=== PATIENT | female | born 1975 | race Caucasian/White ===

== ENCOUNTER → 2024-02-19 07:51 | Outpatient (REF) | payer BC, SELFPAY | LOC: WDC 07:51 | PROVIDERS: ATTENDING PHYSICIAN Nurse Practitioner Adult Health; FAMILY PHYSICIAN Internal Medicine | DX: Z12.31 Encounter for screening mammogram for malignant neoplasm of breast (principal) | CPT/HCPCS: 77063; 77067 ==

== ENCOUNTER → 2024-07-15 09:08 | Outpatient (REF) | payer BC, SELFPAY | LOC: WDC 09:08 | PROVIDERS: ATTENDING PHYSICIAN Internal Medicine | DX: N63.10 Unspecified lump in the right breast, unspecified quadrant (principal); N63.11 Unspecified lump in the right breast, upper outer quadrant | CPT/HCPCS: 76642; 77061; 77065 ==

== ENCOUNTER → 2024-07-29 10:26 | Outpatient (REF) | payer BC, SELFPAY ==
--- NOTE | 2024-07-29 13:42 | OID.BR.INTR ---
[facility] Breast Navigator - Initial
- -
Date of Contact: 07/29/24
Met with patient. Patient given written information on navigator services available at [facility]. Will follow up as needed per protocol.
== END ==
LOC: WDC 10:26
PROVIDERS: ATTENDING PHYSICIAN Internal Medicine
DX: N63.11 Unspecified lump in the right breast, upper outer quadrant (principal)
CPT/HCPCS: 88305; 19083; 88341; 88342; 88360; A4648

== ENCOUNTER → 2024-08-17 10:58 | Outpatient (REF) | payer BC, SELFPAY | LOC: WDC 10:58 | PROVIDERS: ATTENDING PHYSICIAN Surgery; FAMILY PHYSICIAN Internal Medicine | DX: R92.30 Dense breasts, unspecified (principal); Z17.0 Estrogen receptor positive status [ER+]; C50.411 Malignant neoplasm of upper-outer quadrant of right female breast | CPT/HCPCS: 76641 ==

== ENCOUNTER → 2024-08-26 09:52 | Outpatient (REF) | payer BC, SELFPAY | LOC: WDC 09:52 | PROVIDERS: ATTENDING PHYSICIAN Surgery | DX: C50.411 Malignant neoplasm of upper-outer quadrant of right female breast (principal) | CPT/HCPCS: 38792; 76942; A9541 ==

== ENCOUNTER 2024-08-27 06:32 | Day surgery (SDC) | payer BC, SELFPAY ==
[2024-08-20 07:31] VITALS: BMI 19.2
[2024-08-20 08:10] LABS: Hemoglobin 15.5 g/dL (12.0-16.0); Mean Corp Hgb Conc. 35.2 g/dL (33.0-37.0); Mean Corpuscular Hgb 31.3 pg (27.0-31.0); Mean Corpuscular Volume 88.9 fL (81.0-99.0); Mean Platelet Volume 9.2 fL (7.4-10.4); Platelet Count 252 10^3/uL (130-400); Red Blood Cell Count 4.95 10^6/uL (4.20-5.40); Red Cell Dist. Width 11.9 % (11.5-14.5); White Blood Cell Count 5.9 10^3/uL (4.8-10.8)
[2024-08-20 08:17] LABS: ALT (SGPT) 23 U/L (0-35); AST (SGOT) 29 U/L (14-36); Albumin 4.5 g/dl (3.5-5.0); Alkaline Phosphatase 42 U/L (38-126); Blood Urea Nitrogen 18 mg/dl (7-17); Calcium 9.8 mg/dl (8.4-10.2); Carbon Dioxide 26 mmol/L (22-30); Chloride 103 mmol/L (98-107); Estimated Creatinine Clearance 67 ml/min; Glucose 94 mg/dl (70-99); Potassium 4.1 mmol/L (3.5-5.1); Sodium 137 mmol/L (135-145); Total Bilirubin 0.5 mg/dl (0.2-1.3); Total Protein 6.8 g/dl (6.3-8.2); eGFR > 60.00
[2024-08-20 08:23] LABS: Prealbumin (Transthyretin) 29.7 mg/dl (17.6-36.0)
[2024-08-20 08:35] LABS: Vitamin D, 25-OH*** 53.5 ng/mL (30-80)
[2024-08-27] VITALS (10 sets, daily range): BP systolic 95–119; BP diastolic 66–80; BMI 19.2
[2024-08-27] MEDS: TYLENOL 1000 MG PO (09:51)
[2024-08-27] MEDS: NORMOSOL-R/PLASMALYTE-A 1000 IV (09:55)
[2024-08-27] MEDS: LOVENOX 40 MG SC (11:42)
--- NOTE | 2024-08-27 14:31 | W.IMMPOSTOP ---
Surgical Immed Post Op Note
-
Primary Surgeon: Darcy
Assisting Surgeon: None
Pre-op Diagnosis: Right breast carcinoma
Post-op Diagnosis: Right breast carcinoma
Procedure Performed: Right locaized lumpectomy, sentinel lymph node mapping and biopsy
Anesthesia Type: LMA
Specimen / Cultures: Right lumpectomy, margins, sentinel nodes
Estimated Blood Loss: 6cc
Complications: None
Operative Findings: neg nodes on frozen section
--- NOTE | 2024-08-27 14:32 | OR.RPT ---
Operative Report
Operative Report
Procedure date: 08/27/24
Pre-Op DX: Right breast carcinoma
Post-Op DX: Right breast carcinoma
Procedure: Right lumpectomy, sentinel lymph node mapping and biopsy
Surgeon: Darcy
The patient is a 48-year-old female who palpated a mass in her right breast. Workup and biopsy revealed infiltrating ductal carcinoma and she presents for breast conservation surgery. On the day prior to the procedure the patient presented to the
[facility] and underwent technetium radiotracer injection in the right breast parenchyma. On the day of the procedure she presented to the same-day surgical unit where she verified site and procedure and underwent operative prep.
Antibiotic and DVT prophylaxis were provided.
The patient was taken to the operating room and in the supine position TIVA anesthesia with aa laryngeal airway mask was induced. The right breast and axilla were prepped and draped in usual sterile fashion. An appropriate timeout was performed by
all staff members.
All tissues were anesthetized with 1% lidocaine plain. Attention was first turned to the axilla where a curvilinear incision was made inferior to the hairline overlying the area of highest external gamma count. Dissection was carried through
clavipectoral fascia using the cautery and using the gamma probe, two sentinel node packets were encountered and excised. Feeding vessels to the nodes were controlled with 3-0 silk. After their removal and there was a greater than 4 fold reduction
to background count. Frozen section analysis on the nodes was negative. Hemostasis was verified. Marcaine 0.5% plain was instilled and the wound was closed using simple interrupted 3-0 plain on deep intermediate and subcutaneous tissue and skin
was closed with a running subcuticular 4-0 Monocryl.
([id number])Next attention was turned to the lumpectomy where a curvilinear incision was made in the upper outer quadrant overlying the palpable mass. Skin flaps were elevated and a 2-0 silk traction stitch was passed through the mass
which was widely excised with the cautery. Time out of body was noted and the specimen was oriented for the pathologist and sent for permanent analysis. Additional margins were harvested for permanent analysis from the posterior, medial, superior,
lateral, inferior, and anterior dimensions. These were oriented as well. Hemostasis was verified. Marcaine 0.5% plain was instilled into all tissues and hemoclips were placed in the resection cavity. This wound was closed in the same fashion as
the axillary incision. Surgical glue and sterile compressive dressings were applied. All sponge needle and instrument counts were correct and the patient was transferred to the recovery room in stable condition
[place] Node Bx Breast Cancer
[place] Node Bx Breast Cancer
Operation performed with curative intent: Yes
Tracer(s) to ID [place] Nodes in Non-Neoadjuvant setting: Radioactive Tracer
Tracer(s) to ID [place] Nodes in the Neoadjuvant Setting: N/A
All nodes at end of dye-filled Lymphatic Channel removed: N/A
All Significantly Radioactive Nodes were removed: Yes
All Palpably Suspicious Nodes were Removed: Yes
Bx Proven Pos Nodes Marked Prior to Chemo ID'd & Removed: N/A
== END 2024-08-27 15:31 | disposition home or self-care (01) ==
LOC: SDS 06:32
PROVIDERS: ATTENDING PHYSICIAN Surgery; FAMILY PHYSICIAN Internal Medicine
DX: C50.911 Malignant neoplasm of unspecified site of right female breast (principal); N62 Hypertrophy of breast; N60.11 Diffuse cystic mastopathy of right breast; Z17.0 Estrogen receptor positive status [ER+]
CPT/HCPCS: 38525; 19301; 88305; 88307; 88332; 36415; 80053; 82306; 84134; 85027; 88331; 88342; A4648; L8000

== ENCOUNTER 2024-10-01 07:31 | Outpatient (RCR) | payer BC, SELFPAY | END 2024-10-01 23:59 | disposition home or self-care (01) | LOC: RPT 07:31 | PROVIDERS: ATTENDING PHYSICIAN Surgery; FAMILY PHYSICIAN Internal Medicine | DX: C50.411 Malignant neoplasm of upper-outer quadrant of right female breast (principal); N64.89 Other specified disorders of breast; L90.5 Scar conditions and fibrosis of skin; Z73.6 Limitation of activities due to disability; M62.81 Muscle weakness (generalized) | CPT/HCPCS: 97110; 97140; 97162; 97530 ==

== ENCOUNTER 2024-12-03 06:20 | Day surgery (SDC) | payer BC, SELFPAY | END 2024-12-03 14:32 | disposition home or self-care (01) | LOC: GI 06:20 | PROVIDERS: ATTENDING PHYSICIAN Internal Medicine Gastroenterology | DX: Z12.11 Encounter for screening for malignant neoplasm of colon (principal); R19.5 Other fecal abnormalities; K64.8 Other hemorrhoids; D12.5 Benign neoplasm of sigmoid colon; D12.3 Benign neoplasm of transverse colon | CPT/HCPCS: 45385; 88305 ==

== ENCOUNTER → 2025-02-24 07:42 | Outpatient (REF) | payer BC, SELFPAY | LOC: WDC 07:42 | PROVIDERS: ATTENDING PHYSICIAN Surgery; FAMILY PHYSICIAN Internal Medicine | DX: Z12.31 Encounter for screening mammogram for malignant neoplasm of breast (principal) | CPT/HCPCS: 77063; 77067 ==

== ENCOUNTER → 2025-03-11 08:31 | Outpatient (REF) | payer BC, SELFPAY | LOC: WDC 08:31 | PROVIDERS: ATTENDING PHYSICIAN Surgery; FAMILY PHYSICIAN Internal Medicine | DX: R92.8 Other abnormal and inconclusive findings on diagnostic imaging of breast (principal) | CPT/HCPCS: 76642 ==

== ENCOUNTER → 2025-04-29 09:02 | Outpatient (REF) | payer BC, SELFPAY | LOC: RAD 09:02 | PROVIDERS: ATTENDING PHYSICIAN Nurse Practitioner Adult Health; FAMILY PHYSICIAN Internal Medicine | DX: N93.9 Abnormal uterine and vaginal bleeding, unspecified (principal) | CPT/HCPCS: 76830; 76856 ==

== ENCOUNTER 2025-07-05 08:40 | Outpatient (RCR) | payer BC, SELFPAY | END 2025-07-05 13:56 | disposition home or self-care (01) | LOC: RPT 08:40 | PROVIDERS: ATTENDING PHYSICIAN Surgery; FAMILY PHYSICIAN Internal Medicine | DX: C50.411 Malignant neoplasm of upper-outer quadrant of right female breast (principal); N64.89 Other specified disorders of breast; Z73.6 Limitation of activities due to disability; M62.81 Muscle weakness (generalized) | CPT/HCPCS: 97110; 97140; 97162; 97530 ==